=== PATIENT | male | born 1950 | race Caucasian/White ===

== ENCOUNTER 2020-07-28 19:34 | Inpatient (IN) | payer MEDICARE, OTHER ==
[~2020-07-28] VITALS: Ht 175.3 cm; Wt 101.7 kg
[2020-07-28] MEDS ORDERED: IOHEXOL 350 MG/ML 100 ML VIAL. ONE (19:43)
[2020-07-28] MEDS ORDERED: IV NORMAL SALINE 1,000ML 1,000 ML IV ONE (19:45)
--- NOTE | 2020-07-28 19:59 | RAD ---
Exam: CT head INDICATION: Slurred speech TECHNIQUE: Sequential axial images through the head were obtained without the administration of IV contrast. Comparisons: None FINDINGS: No focal parenchymal lesion or hemorrhage is identified. There is no midline shift or sulcal effacement. Findings likely related to chronic infarct at the right frontal lobe. There is mild patchy hypodensity in the periventricular white matter. No acute vascular territory infarction is identified. Davidson-white distinction is preserved. The ventricular system is within normal limits without compression hydrocephalus. The basal cisterns are well maintained. The visualized portions of the paranasal sinuses and mastoid air cells are well-pneumatized. No acute fractures. IMPRESSION: Mild small vessel ischemic change, technically age indeterminate without prior imaging. Additionally there is a chronic appearing infarct at the right frontal lobe, subacute component is difficult to exclude. MRI would better evaluate for acute ischemia. No hemorrhage. Exposure: One or more of the following in the visualized dose reduction techniques were utilized for this examination: 1. Automated exposure control 2. Adjustment of the MA and/or KV according to patient size Use of iterative of reconstructive technique FOR INTERNAL CODING PURPOSES Critical result: Findings discussed with KARMA RALPH at 07/28/2020 7:48 PM. RESULT CODE: (C) Electronically signed by: You Jackson MD (07/28/2020 7:55 PM) [facility]
--- NOTE | 2020-07-28 20:03 | PHYS DOC ---
Past History Past Medical History: CAD, Hypertension, IA Additional Past Medical Histor: Chronic back pain with LLE numbness Additional Past Surgical Histo: Heart stents Smoking: Non-smoker Alcohol Use: None Drug Use: None General Adult EDM: Chief Complaint: ALTERED MENTAL STATUS HPI: HPI: 69-year-old male presents via EMS as code stroke. Patient had presented to a urgent care with report of sudden slurred speech and left arm numbness that started at 1830. Patient reports he was at the local [facility] ordering food when symptoms occurred. EMS was called to the urgent care for a possible stroke. EMS noted patient having facial droop, slurred speech, and report of numbness to left arm. Patient reports he has chronic numbness in his left leg. Denies history of prior stroke. Patient denies trauma. Reports he is currently taking Plavix due to history of CAD with cardiac stents. Reports history of HTN and chronic back issues. Review of Systems: Review of Systems: Constitutional: Denies fever or chills Eyes: Denies redness or eye pain HENT: Denies nasal congestion or sore throat Respiratory: Denies cough or shortness of breath Cardiovascular: Denies chest pain or palpitations GI: Denies abdominal pain, nausea, or vomiting : Denies dysuria or hematuria Musculoskeletal: Denies back pain or joint pain Integument: Denies rash or skin lesions Neurologic: Denies headache; reports slurred speech, left-sided facial droop and left arm and leg numbness Complete systems were reviewed and found to be within normal limits, except as documented in this note. Current Medications: Current Meds: Current Medications Medications (Trade) Dose Ordered Sig/Thomas Start Time Stop Time Status Last Admin Dose Admin Iohexol (Omnipaque 350 Mg/ml) 100 ml STK-MED ONCE 07/28/20 19:43 07/28/20 19:44 DC Sodium Chloride 1,000 ml @ 1,000 mls/hr 1X ONCE 07/28/20 19:45 07/28/20 20:44 UNV Allergies: Allergies: Allergies Coded Allergies Type Severity Reaction Last Updated Verified Penicillins Allergy Unknown 07/28/20 Yes Sulfa (Sulfonamide Antibiotics) Allergy Unknown 07/28/20 Yes sulfamethoxazole Allergy Unknown 07/28/20 Yes trimethoprim Allergy Unknown 07/28/20 Yes Physical Exam: PE: Constitutional: Well developed, well nourished, no acute distress, non-toxic appearance HENT: Normocephalic, atraumatic, left-sided facial droop noted Eyes: PERRL, EOMI, conjunctiva normal, no discharge Neck: Normal range of motion, no tenderness, supple Lungs & Thorax: No respiratory distress, equal chest rise and fall CV: Heart rate normal, distal pulses equal to BUE and BLE Abdomen: Soft, no tenderness Skin: Warm, dry, no erythema, no rash Extremities: No tenderness, ROM intact, no edema Neurologic: Alert and oriented X 3, left facial droop noted, speech normal, left hand numbness and left leg numbness reported in comparison to right sided extremities, left leg drift without touching noted Psychologic: Affect normal, judgment normal EKG: EKG: @2013 NSR at 79bpm, NO ST elevation, QRS 92ms, QT/QTc 366/421ms, Q wave in III Radiology/Procedures: Radiology/Procedures: PROCEDURE: CT CODE STROKE HEAD WO Exam: CT head INDICATION: Slurred speech TECHNIQUE: Sequential axial images through the head were obtained without the administration of IV contrast. Comparisons: None FINDINGS: No focal parenchymal lesion or hemorrhage is identified. There is no midline shift or sulcal effacement. Findings likely related to chronic infarct at the right frontal lobe. There is mild patchy hypodensity in the periventricular white matter. No acute vascular territory infarction is identified. Davidson-white distinction is preserved. The ventricular system is within normal limits without compression hydrocephalus. The basal cisterns are well maintained. The visualized portions of the paranasal sinuses and mastoid air cells are well-pneumatized. No acute fractures. IMPRESSION: Mild small vessel ischemic change, technically age indeterminate without prior imaging. Additionally there is a chronic appearing infarct at the right frontal lobe, subacute component is difficult to exclude. MRI would better evaluate for acute ischemia. No hemorrhage. Exposure: One or more of the following in the visualized dose reduction techniques were utilized for this examination: 1. Automated exposure control 2. Adjustment of the MA and/or KV according to patient size Use of iterative of reconstructive technique FOR INTERNAL CODING PURPOSES Critical result: Findings discussed with JIMMY RALPH at 07/28/2020 7:48 PM. RESULT CODE: (C) Electronically signed by: You Jackson MD (07/28/2020 7:55 PM) [facility] PROCEDURE: CT ANGIOGRAPHY HEAD AND NECK Exam: CTA head and neck INDICATION: Left-sided weakness TECHNIQUE: Sequential axial images through the head and neck obtained following the administration of 75 mL of Omni 350 IV contrast. Sagittal and coronal reformatted images were reconstructed from the axial data and reviewed. 3-D reformatted images were reconstructed from the axial data and reviewed. Comparisons: CT head without contrast same day FINDINGS: CTA NECK: Visualized portions thoracic aorta are unremarkable. Standard three-vessel aortic arch anatomy. Right common carotid artery is patent without evidence of stenosis, occlusion or aneurysm. There is plaque at the origin of the right internal carotid artery approximately 70% stenosis. Left common carotid artery is patent without evidence of stenosis, occlusion or aneurysm. Mild plaque at the origin of the left internal carotid artery without significant stenosis. Right vertebral artery is patent to the basilar confluence without evidence of stenosis, occlusion or aneurysm. Left vertebral artery is patent to basilar confluence without evidence of stenosis, occlusion or aneurysm. Subtle patchy areas of ground glass opacity at the right upper lobe heterogenous appearance of the thyroid gland. CTA HEAD: Minimal calcified plaque at the cavernous segment of the right internal carotid artery without cement stenosis. Right MCA is patent. Right LUIGI is patent. Minimal calcified plaque at the cavernous segment of the left internal carotid artery velocity stenosis. Left MCA is patent. Left LUIGI is patent. Basilar artery is patent without evidence of stenosis, occlusion or aneurysm. honey blender are patent bilaterally. IMPRESSION: 1. No large vessel occlusion. 2. Severe stenosis at the origin of the right internal carotid artery, approximately 70% 3. Mild plaque at the origin of the left internal carotid artery as well as the cavernous segments of the internal carotid arteries bilaterally without significant stenosis. 4. Subtle patchy ground best opacity at the right upper lobe, may be infectious or inflammatory in etiology. 5. Heterogenous appearance of the thyroid gland. Further evaluation with nonemergent/outpatient thyroid ultrasound is recommended. Exposure: One or more of the following in the visualized dose reduction techniques were utilized for this examination: 1. Automated exposure control 2. Adjustment of the MA and/or KV according to patient size 3. Use of iterative of reconstructive technique FOR INTERNAL CODING PURPOSES Critical result: Findings discussed with JIMMY RALPH at 07/28/2020 8:27 PM. RESULT CODE: (C) Electronically signed by: You Jackson MD (07/28/2020 8:37 PM) [facility] PROC[facility]: PORTABLE CHEST 1V Single view chest dated 07/28/2020: No comparison available. Clinical Indication: Altered mental status.. Findings: Single upright portable exam of the chest was performed. Heart size and mediastinal contours are within normal limits given technique. The lungs are clear without evidence of focal consolidation. Vascular interstitium is within normal limits. Impression:: No acute radiographic abnormality.. Electronically signed by: Jimmy El MD (07/28/2020 9:04 PM) [facility] Course & Med Decision Making: Course & Med Decision Making Pertinent Labs and Imaging studies reviewed. (See chart for details) Patient presents as CODE STROKE via EMS with slurred speech, left facial droop, and left leg numbness after patient presented to urgent care. Last known well at 1830. Patient sent directly to CT. CT head without hemorrhage but noted chronic vs subacute signs of ischemia to right frontal lobe. NIHSS 3. Patient reports speech mildly improved but still numbness to left hand. Reports left leg numbness is baseline due to chronic back "issues". ASA given after patient passed RN bedside swallow evaluation. Patient within window of time for TPA. Concern given possible subacute area on CT, low NIHSS, and some mild improvement of symptoms. CTA head/neck without large vessel occlusion. Some carotid stenosis noted and incidental opacity to right upper lung. CXR without acute process. Discussed case with Dr. Griffin (neurology) at [facility] regarding case. Recommends discussion with Neurology regarding. Discussed case with Dr. Maria Eugenia Lance ( neurology) regarding. In agreement with risk of hemorrhage given CT findings and risk vs benefit with low NIHSS and some improvement of symptoms. Discussed risk vs benefit with patient. Patient with shared decision to hold TPA at this time. Patient requiring admission for further evaluation and treatment. Discussed with Dr. Trotter (hospitalist) who is in agreement with admission. Originally discussed transfer to [facility] for admission due to possible need for MRI during admission. [place] reports no telemetry beds available at this time, with earliest availability being next morning. Discussed with Dr. Trotter regarding who is in agreement with admission to [place] with neurology consultation to Dr. Tracy (neurology). Patient can be transferred to [place] for MRI as inpatient at [place] if needed or could possibly have MRI obtained as outpatient. Discussed this also with Dr. Griffin, who also is in agreement with plan. Discussed findings and plan with patient, who acknowledges understanding and agreement. Caty Disclaimer: Dragon Disclaimer: This electronic medical record was generated, in whole or in part, using a voice recognition dictation system. Departure Departure: Impression: Primary Impression: CVA (cerebral vascular accident) Qualified Codes: I63.9 - Cerebral infarction, unspecified Disposition: ADMITTED INPATIENT Admitting Physician: Kylie Trotter Condition: GUARDED NIHSS - ED NIH Stroke Scale: NIH Stroke Scale Response (Comments) Value Level of Consciousness: 0 Alert/Responsive 0 LOC Questions: 0 Answers both correctly 0 LOC Commands: 0 Performs both tasks 0 Best Gaze: 0 Normal 0 Visual: 0 No visual loss 0 Facial Palsy: 1 Minor paralysis 1 Motor - Left Arm 0 No drift 0 Motor - Right Arm 0 No drift 0 Motor - Left Leg 1 Drift but can hold 1 Motor: Right Leg 0 No drift 0 Limb Ataxia: 0 Absent 0 Sensory: 1 Mid to moderate loss 1 Best Language: 0 Normal 0 Dysathria: 0 Normal 0 Extinction and Inattention: 0 Normal 0 Total 3 Critical Care Time Critical care time was 30 minutes which includes time at bedside, spent in discussion of patient's care with specialists and/or family members, with interpretation of laboratory and/or radiological studies and is exclusive of procedures. JIMMY RALPH DO Jul 28, 2020 20:03
[2020-07-28] MEDS ORDERED: ASPIRIN 325 MG TABLET PO ONE (20:15)
--- NOTE | 2020-07-28 20:39 | RAD ---
Exam: CTA head and neck INDICATION: Left-sided weakness TECHNIQUE: Sequential axial images through the head and neck obtained following the administration of 75 mL of Omni 350 IV contrast. Sagittal and coronal reformatted images were reconstructed from the axial data and reviewed. 3-D reformatted images were reconstructed from the axial data and reviewed. Comparisons: CT head without contrast same day FINDINGS: CTA NECK: Visualized portions thoracic aorta are unremarkable. Standard three-vessel aortic arch anatomy. Right common carotid artery is patent without evidence of stenosis, occlusion or aneurysm. There is plaque at the origin of the right internal carotid artery approximately 70% stenosis. Left common carotid artery is patent without evidence of stenosis, occlusion or aneurysm. Mild plaque at the origin of the left internal carotid artery without significant stenosis. Right vertebral artery is patent to the basilar confluence without evidence of stenosis, occlusion or aneurysm. Left vertebral artery is patent to basilar confluence without evidence of stenosis, occlusion or aneurysm. Subtle patchy areas of ground glass opacity at the right upper lobe heterogenous appearance of the thyroid gland. CTA HEAD: Minimal calcified plaque at the cavernous segment of the right internal carotid artery without cement stenosis. Right MCA is patent. Right LUIGI is patent. Minimal calcified plaque at the cavernous segment of the left internal carotid artery velocity stenosis. Left MCA is patent. Left LUIGI is patent. Basilar artery is patent without evidence of stenosis, occlusion or aneurysm. cattle dealer are patent bilaterally. IMPRESSION: 1. No large vessel occlusion. 2. Severe stenosis at the origin of the right internal carotid artery, approximately 70% 3. Mild plaque at the origin of the left internal carotid artery as well as the cavernous segments of the internal carotid arteries bilaterally without significant stenosis. 4. Subtle patchy ground best opacity at the right upper lobe, may be infectious or inflammatory in etiology. 5. Heterogenous appearance of the thyroid gland. Further evaluation with nonemergent/outpatient thyroid ultrasound is recommended. Exposure: One or more of the following in the visualized dose reduction techniques were utilized for this examination: 1. Automated exposure control 2. Adjustment of the MA and/or KV according to patient size 3. Use of iterative of reconstructive technique FOR INTERNAL CODING PURPOSES Critical result: Findings discussed with KARMA RALPH at 07/28/2020 8:27 PM. RESULT CODE: (C) Electronically signed by: You Jackson MD (07/28/2020 8:37 PM) [facility]
--- NOTE | 2020-07-28 21:01 | EKG ---
[address] [address] Test Date: 2020-07-28 Test Time: 20:13:14 Pat Name: JARED JOYCE Department: Room: Gender: M Facility Maintenance Mechanic: : [id number] Requested By: KARMA RALPH Order Number: [id number] Reading MD: Measurements Intervals [place] Rate: 79 P: 39 VT: 170 QRS: -65 QRSD: 92 T: 25 QT: 366 QTc: 421 Interpretive Statements SINUS RHYTHM ABNORMAL LEFT AXIS DEVIATION QRS(T) CONTOUR ABNORMALITY CONSIDER ANTEROLATERAL INFARCT CONSISTENT WITH INFERIOR INFARCT PROBABLY OLD ABNORMAL ECG RI6.02 No previous ECG available for comparison
--- NOTE | 2020-07-28 21:06 | RAD ---
Single view chest dated 07/28/2020: No comparison available. Clinical Indication: Altered mental status.. Findings: Single upright portable exam of the chest was performed. Heart size and mediastinal contours are within normal limits given technique. The lungs are clear without evidence of focal consolidation. Vascular interstitium is within normal limits. Impression:: No acute radiographic abnormality.. Electronically signed by: Jimmy El MD (07/28/2020 9:04 PM) [place]
[2020-07-28] MEDS ORDERED: ONDANSETRON PF 4 MG/2 ML VIAL. IVP PRN (22:45)
--- NOTE | 2020-07-29 00:40 | NUR ---
The patient, JARED JOYCE, 69 y/o, M admitted by PRABHAKAR CALVO MD, was given written information regarding hospital policies, unit procedures and contact persons. Valuables were checked and documented. Pt is alert and oriented with stable vitals. Pt does have left side facial droop with slight slurring of speech. Pt is up as tolerated in room with equal strength bilaterally in all extremities. Pt had no complaints at the time. Pt is currently in bed watching TV. Will continue to monitor.
[2020-07-29 00:55] VITALS: BP 145/83
[2020-07-29] MEDS ORDERED: CRESTOR40 MG PO (01:42)
[2020-07-29] MEDS ORDERED: HYDR-2145 PO (01:42)
[2020-07-29] MEDS ORDERED: LOSA50TA86 PO (01:42)
[2020-07-29] MEDS ORDERED: EZET10TA20 PO (01:42)
[2020-07-29] MEDS ORDERED: TRAM50TA PO (01:42)
[2020-07-29] MEDS ORDERED: PANT40TA6 PO (01:42)
[2020-07-29] MEDS ORDERED: VORT20TA PO (01:43)
[2020-07-29] MEDS ORDERED: CYCL1DRO OP (01:48)
[2020-07-29] MEDS ORDERED: TRAZ-125 PO (01:48)
[2020-07-29] MEDS ORDERED: CLON0.5T4 PO (01:48)
[2020-07-29] MEDS ORDERED: ASPI-630 PO (01:48)
[2020-07-29 02:29] LABS: BASO # 0.1 x10^3/uL (0.0-0.2); BASO % 1 % (0-3); EOS # 0.2 x10^3/uL (0.0-0.7); EOS % 2 % (0-3); HEMATOCRIT 50.4 % (39.0-53.0); HEMOGLOBIN 16.4 g/dL (13.0-17.5); LYMPH # 0.9 x10^3/uL (1.0-4.8); LYMPH % 10 % (24-48); MEAN CORPUSCULAR HEMOGLOBIN 30 pg (25-35); MEAN CORPUSCULAR HGB CONC 33 g/dL (31-37); MEAN CORPUSCULAR VOLUME 93 fL (79-100); MONO # 0.7 x10^3/uL (0.0-1.1); MONO % 8 % (0-9); NEUT # 7.1 x10^3uL (1.8-7.7); NEUT % 79 % (31-73); PLATELET COUNT 190 x10^3/uL (140-400); RED BLOOD COUNT 5.43 x10^6/uL (4.30-5.70); RED CELL DISTRIBUTION WIDTH 13.5 % (11.5-14.5)
[2020-07-29 04:25] LABS: CALCIUM 9.1 mg/dL (8.5-10.1); CREATININE 1.5 mg/dL (0.7-1.3); GFR 46.1; POTASSIUM 4.5 mmol/L (3.5-5.1)
[2020-07-29 04:42] LABS: ALBUMIN 3.5 g/dL (3.4-5.0); ALBUMIN/GLOBULIN RATIO 1.2 (1.0-1.7); TOTAL BILIRUBIN 0.9 mg/dL (0.2-1.0); TOTAL PROTEIN 6.5 g/dL (6.4-8.2)
[2020-07-29 06:22] VITALS: BP 137/77
--- NOTE | 2020-07-29 08:35 | NUR ---
NURSING NOTE CONSULT CONSULT PAGED TO DR WILSON. GRANT GALAN.
[2020-07-29] MEDS ORDERED: ASPIRIN CHEWABLE 81 MG TABLET. PO SCH (10:00)
[2020-07-29] MEDS ORDERED: CLOP75TA57 PO (10:03)
[2020-07-29 10:08] VITALS: BP 164/75
[2020-07-29] MEDS: CLOPIDOGREL BISULFATE 75 MG TABLET PO SCH (11:10)
[2020-07-29] MEDS: traMADol 50 MG TABLET PO SCH (11:10)
[2020-07-29] MEDS: LOSARTAN 50 MG TABLET. PO SCH (11:10)
[2020-07-29] MEDS: EZETIMIBE 10 MG TABLET PO SCH (11:10)
[2020-07-29] MEDS: PANTOPRAZOLE 40 MG TABLET. PO SCH (11:29)
[2020-07-29 16:49] VITALS: BP 145/81
--- NOTE | 2020-07-29 17:02 | HP ---
ADMIT DATE: 07/28/2020 HISTORY OF PRESENT ILLNESS: The patient is a 69-year-old male patient, who came to the Emergency Room with altered mental status. He was brought by EMS with a code stroke. The patient had presented to an urgent care with report of sudden slurred speech and left arm numbness that started at around 1830. He reported that he was at the local [employer] ordering food when symptoms occurred. EMS was called to the urgent care for a possible stroke. EMS noted the patient having facial droop, slurred speech and reports numbness in the left arm. He reported that he has chronic numbness in his left leg. Denied any history of prior stroke. Denied any trauma or fall. He reports he is currently taking Plavix due to history of coronary artery disease and cardiac stents, has a history of hypertension, chronic back issues. He was evaluated in the Emergency Room, has had lab work that was generally unremarkable. His CT scan of the head showed mild small vessel ischemic changes, technically age indeterminate without prior imaging. Additionally, there is a chronic appearing infarct at the right frontal lobe, subacute component is difficult to exclude. MRI would better evaluate for acute ischemia, but no hemorrhage. His CT angio showed no large vessel occlusion. He has severe stenosis at the origin of the right internal carotid artery approximately 70%. He has mild plaque at the origin of the left internal carotid artery as well as cavernous segments of the internal carotid arteries bilaterally without significant stenosis. He has subtle patchy ground opacity at the right upper lobe, may be infectious, inflammatory in etiology. He has heterogenous appearance of the thyroid gland. Further evaluation with nonemergent outpatient thyroid ultrasound is recommended. The patient was admitted to [facility]. We did consult Dr. Tracy for evaluation and treatment. PAST MEDICAL HISTORY: Significant for hypertension and hyperlipidemia. He has had myocardial infarction x 4. He had a PCI with stent deployment x 4. He has chronic sinusitis, recurrent cellulitis, benign prostatic hypertrophy and chronic low back pain. PAST SURGICAL HISTORY: Significant for PCI with stent deployment x 4, appendectomy, tonsillectomy, Achilles tendon repair of the right foot and pilonidal cystectomy. ALLERGIES: Allergic to BACTRIM AND PENICILLIN. MEDICATIONS: He is currently on following medications: He is on Plavix 75 mg once a day, Zetia 10 mg once a day, Crestor 40 mg once a day, losartan potassium 50 mg daily, aspirin 325 mg once a day, tramadol 50 mg daily, clonazepam 0.5 mg b.i.d., trazodone 100 mg p.o. at bedtime. He is on Trintellix 20 mg daily, hydrochlorothiazide 25 mg daily and cyclosporine for Restasis 1 drop to both eyes twice a day, Protonix 40 mg daily. FAMILY HISTORY: He has one brother older and 2 brothers younger and 1 sister younger, one older brother and one younger sister. One younger brother has myocardial infarction. His father at the age of 60 because of myocardial infarction. Mother at age of 97. SOCIAL HISTORY: , has 4 daughters. He never smoked. Drinks alcohol occasionally. Does not use any drugs. He is retired from the [employer]. 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 REVIEW OF SYSTEMS: As per history of present illness that included slurring of speech and left arm numbness and difficulty talking that has largely improved by the time he arrived to the Emergency Room. The patient denies any blurring of vision, cataract, glaucoma or macular degeneration. Denied any earache, tinnitus or sensorineural deafness. Denied any nosebleeds, stuffy nose or postnasal drip. Denied any sore throat, sore tongue, and difficulty swallowing. Denied any nausea, vomiting, diarrhea or constipation. Denied any hematemesis, melena or hematochezia. Denied any dysuria, frequency or hematuria. Denied any chest pain, shortness of breath, orthopnea or paroxysmal nocturnal dyspnea. Denied any cough, phlegm or hemoptysis. Denied any chills, rigors or fever. PHYSICAL EXAMINATION: GENERAL: On arrival to the Emergency Room, the patient looked well and was clearly in no apparent respiratory distress. No pallor, jaundice, cyanosis or thyromegaly. No jugular venous distention. No limb edema. VITAL SIGNS: His heart rate was 82, blood pressure was 151/80, temperature was 98, respiratory rate was 16, and oxygen saturation was 96%. HEAD, EYES, EARS, NOSE AND THROAT: Normocephalic, atraumatic. NECK: Supple. HEART: Showed normal first and second heart sounds. No gallop or murmur. CHEST: Clear to auscultation. No crepitation or rhonchi. ABDOMEN: Distended, soft, nontender. No guarding or rigidity. No organomegaly. All hernial orifice intact. Bowel sounds normal. NEUROLOGIC: He was awake, alert, oriented to time, place and person. The speech is normal. His left hand numbness and left leg numbness reported in comparison to the right side. Left leg drift without touching noted. His affect and judgment were normal. His EKG showed that he was in normal sinus rhythm at a rate of 79 beats per minute with no ST segment elevation, QRS 92, and corrected interval of [address] scan of the head showed no focal parenchymal lesion or hemorrhage identified. There is no midline shift or sulcal effacement. Finding likely related to chronic infarct at the right frontal lobe. There is a mild patchy hypodensity in the periventricular white matter. No acute vascular territory infarction is identified. Davidson white distinction is preserved. Ventricular system is within normal limits without compression hydrocephalus. The basal cisterns are well maintained. The visualized portion of the paranasal sinuses and mastoid air cells are well pneumatized. No acute fracture. The CT angio of the head and neck basically showed that there is no large vessel occlusion or severe stenosis at the origin of the right internal carotid artery of approximately 70%. He has mild plaque at the origin of the left internal carotid artery as well at the cavernous segments of the internal carotid arteries bilaterally without significant stenosis. He has subtle patchy ground opacity at the right upper lobe, may be infectious, inflammatory in etiology. He has also heterogenous appearance of the thyroid gland. Further evaluation with nonemergent outpatient thyroid ultrasound is recommended. His lab work showed that his white cell count was 9000, hemoglobin 16, hematocrit 50, MCV 93, and platelet count of 190,000 with a manual differential shows 79% polymorphs, 10% lymphocytes and 8% monocytes. His chemistry showed a serum sodium 140, potassium 4.5, chloride 105, bicarbonate 24, anion gap of 11, BUN 26, creatinine 1.5, estimated GFR was 46 mL per minute, his glucose was 122, calcium was 9.1. Total bilirubin, AST, ALT, alkaline phosphatase were normal. Ammonia was 24. CK was 95. Total protein 6.5, albumin was 1.2. His lipid profile showed serum triglycerides of 148, total cholesterol was 108, LDL was 40, VLDL was 29, HDL cholesterol was 39, the ratio was 2. His prothrombin time was 10.4, INR 1, aPTT was 25. ASSESSMENT AND PLAN: The patient was admitted with questionable transient ischemic attack. We did consult Dr. Tracy, who recommended increasing his aspirin to 325 mg. Continue with Plavix and his atorvastatin as well as Zetia. We will consult the physical and occupational therapist, I have spoked and decide on further management accordingly. PRABHAKAR CALVO MD DR: ANNEL/jesus JOB#: [id number] / [id number]
[2020-07-29 19:25] VITALS: BP 123/54
--- NOTE | 2020-07-29 19:39 | CONS ---
DATE OF CONSULTATION: NEUROLOGIC CONSULTATION REFERRING PHYSICIAN: Dr. Trotter. REASON FOR CONSULTATION: Rule out stroke versus TIA. HISTORY OF PRESENT ILLNESS: This is a 69-year-old right-handed male who was admitted through Emergency Room on account of new onset of slurred speech, numbness of the left arm, started yesterday at 1830. The patient stated he was at a local ____, ordering food when the symptoms began. EMS was activated and transferred the patient for further evaluation. His blood pressure on arrival was 151/80. The patient stated his slurred speech lasted approximately half hour and currently he continues to have some weakness of the left lower side of his face including the lips. He was having mild headaches, but not recently. He denies visual disturbances, weakness of the upper or lower extremities, or vertigo. He denies dysphagia. Initial nonenhanced head CT scan revealed mild small vessel ischemic changes and old infarct in the right frontal lobe, possible subacute. Head and neck CT angio revealed right internal carotid artery stenosis approximately 70% at the origin. The left common carotid artery is patent. There was no evidence of large intracranial vessel stenosis. PAST MEDICAL HISTORY: Significant for coronary artery disease, myocardial infarction x 4, hyperlipidemia, hypertension, arthritis, prediabetes mellitus, bipolar disorder, skin cancer, chronic radicular lower back pain and he related that to degenerative disk disease of the lumbar spine. PAST SURGICAL HISTORY: Status post coronary artery stent placements x 4 and skin melanoma and squamous cell carcinoma as well. FAMILY HISTORY: Mother had pneumonia, brother had cholecystectomy, and father had heart disease. SOCIAL HISTORY: The patient denies smoking, alcohol drinking, or illicit drug use. CURRENT HOME MEDICATIONS: Aspirin chewable 81 mg daily, Plavix 75 mg p.o. daily, Crestor 40 mg daily, pantoprazole 40 mg daily, hydrochlorothiazide 25 mg daily, Zetia 10 mg p.o. daily, clonazepam 0.5 mg b.i.d., trazodone 100 mg at bedtime, Trental 1 tablet daily. ALLERGIES: PENICILLIN, SULFA DRUGS. REVIEW OF SYSTEMS: A 10-point review of systems was performed as mentioned above in history of present illness, otherwise unremarkable. The patient continues to have mild weakness of the left lower face. PHYSICAL EXAMINATION: GENERAL: Obese male, not in acute distress. He weighs 103.4 kilos. VITAL SIGNS: Blood pressure 133/88, respiratory rate 16, pulse is 72, temperature is 98, oxygen saturation 95% on room air. HEENT: Normocephalic, atraumatic, otherwise unremarkable. NECK: Supple. Negative for carotid bruit, lymphadenopathy, or thyromegaly. LUNGS: Clear to A and P. CARDIOVASCULAR: Regular rate and rhythm. Normal S1, S2. There is no S3, S4, or murmur. ABDOMEN: Soft. Bowel sounds positive. EXTREMITIES: Negative for cyanosis, clubbing, or edema. NEUROLOGICAL EXAM: MENTAL STATUS: The patient is alert and oriented x 3. Speech is fluent. There is no language dysfunction. Memory, judgment, and abstracting thinking are normal. The patient denies hallucination or delusion. CRANIAL NERVES: Visual olivera are full. The pupils are reactive to light and accommodation. The extraocular movements are intact. There is no nystagmus. There are no facial motor or sensory deficits. Hearing is intact bilaterally. The palate is elevated symmetrically. Sternocleidomastoid muscles are powerful bilaterally. The patient shrugs his shoulders symmetrically, protrudes his tongue in the midline without fasciculation or atrophy. MOTOR: No focal muscle bulk was seen. The tone is normal. The strength is 5/5 throughout. SENSORY EXAMINATION: Revealed normal pinprick, light touch, vibratory, and position senses. Deep tendon reflexes were asymmetric and hypoactive in the lower extremities with absent Achilles responses. GAIT AND COORDINATION: Normal. LABORATORY DATA: CBC revealed white blood cells of 9000, hemoglobin 16.4, hematocrit 50.4, platelet count 190,000. Chemistry revealed sodium of 140, potassium 4.5, chloride 105, CO2 of 24, BUN 26, creatinine 1.5, glucose 222, calcium 9.1. Troponin level is 0.037. Liver enzymes are normal. Coagulation is normal. IMPRESSION: 1. Very mild left lower facial asymmetry. It is not clear whether it is subacute or old right frontal lobe infarct with no significant other neurological deficits. Multiple risk factors for transient ischemic attack or stroke include right carotid artery stenosis at the origin, coronary artery disease, hypertension, hyperlipidemia, prediabetes mellitus, age, and obesity. 2. Chronic radicular lower back pain secondary to degenerative disk disease. 3. Multiple psychiatric problems include depressions and anxiety. RECOMMENDATIONS: 1. We will start aspirin 325 mg and Plavix 75 mg p.o. daily. 2. We will check lipid profiles. 3. Continue with current management and home medications. 4. May consider right carotid endarterectomy to prevent TIA or stroke. M Hattie WILSON MD DR: ROMA/jesus JOB#: [id number] / [id number]
[2020-07-29] MEDS ORDERED: ATORVASTATIN CALCIUM 20 MG TABLET PO SCH (21:00)
[2020-07-29] MEDS ORDERED: traZODone 100 MG TABLET. PO SCH (21:00)
[2020-07-29] MEDS: clonazePAM 0.5 MG TABLET PO SCH (21:44)
[2020-07-29] MEDS: cycloSPORINE 0.05% OPTH 1 DROP DROPERETTE OU SCH (21:45)
[2020-07-29 22:47] VITALS: BP 110/64
--- NOTE | 2020-07-29 23:08 | PN ---
DATE: 07/29/2020 SUBJECTIVE: The patient is a 69-year-old male patient who was admitted yesterday with altered mental status. He developed slurring of speech and difficulty talking and left arm numbness that started while at the local [employer] ordering food when symptoms occurred. He was taken to an urgent care for possible stroke and from there he was brought to the Emergency Room of [facility] where he was found to have left-sided facial droop, slurred speech and reported numbness in the left arm. He has had imaging studies and lab work and was admitted and we did consult Dr. Tracy for evaluation and treatment. When I saw him today, he was resting slightly propped up in bed, in no apparent respiratory distress. On questioning him, he continued to have mild difficulty with speech, although from my point of view, he was able to express himself without any difficulty. He also continued to complain of some tingling in his left hand, but otherwise he was able to eat and drink without any difficulty. He was able to ambulate without any difficulty. OBJECTIVE: GENERAL: When I examined him this afternoon, he looked well and was clearly in no apparent respiratory distress. There is definitely no pallor, jaundice, cyanosis or thyromegaly. No jugular venous distention or limb edema. VITAL SIGNS: His heart rate was 52, blood pressure was 164/75, temperature was 98.2, respiratory rate was 20, and oxygen saturation was 96%. HEENT: Showed normocephalic, atraumatic. NECK: Supple. HEART: Showed normal first and second heart sounds. No gallop or murmur. CHEST: Shows central trachea, equal bilateral expansion, air entry, vesicular sounds. No crepitation or rhonchi. ABDOMEN: Distended, soft, nontender. NEUROLOGICAL: He has mild left sided facial droop, otherwise all cranial nerves are intact. He moves extremities without difficulty. His intake and output are incompletely recorded. LABORATORY DATA: He has no lab works done this morning. I have had a lengthy discussion with the management, as his plan was to go back to [place] at the end of the week next week, but I gave him the option to transfer him to [facility] to consult the vascular surgeon and the pododermatologist there or back to [place] to be seen by his pododermatologist and arrange for the further evaluation. In particular, he has severe 70% right internal carotid stenosis and he opted for the latter. We will continue observing him for one more day here and tomorrow morning. The plan is for him to fly back to [place]. PRABHAKAR CALVO MD DR: ANNEL/jesus JOB#: [id number] / [id number]
[2020-07-30 05:15] VITALS: BP 128/75
[2020-07-30 06:58] LABS: HEMATOCRIT 48.2 % (39.0-53.0); HEMOGLOBIN 15.9 g/dL (13.0-17.5); RED BLOOD COUNT 5.24 x10^6/uL (4.30-5.70); RED CELL DISTRIBUTION WIDTH 13.4 % (11.5-14.5); WHITE BLOOD COUNT 5.9 x10^3/uL (4.0-11.0)
[2020-07-30 07:07] LABS: CALCIUM 9.2 mg/dL (8.5-10.1); CREATININE 1.1 mg/dL (0.7-1.3); POTASSIUM 4.1 mmol/L (3.5-5.1)
[2020-07-30] MEDS ORDERED: PANTOPRAZOLE 40 MG TABLET. PO SCH (07:30)
[2020-07-30] MEDS ORDERED: ASPIRIN 325 MG TABLET PO SCH (08:00)
[2020-07-30] MEDS ORDERED: hydroCHLOROthiazide 25 MG TABLET PO SCH (09:00)
[2020-07-30] MEDS: cycloSPORINE 0.05% OPTH 1 DROP DROPERETTE OU SCH (09:00)
[2020-07-30] MEDS ORDERED: NON FORMULARY ITEM (Vortioxetine Hydrobromide (Trintellix) 1 TAB) PO SCH (09:00)
[2020-07-30] MEDS: CLOPIDOGREL BISULFATE 75 MG TABLET PO SCH (10:28)
[2020-07-30] MEDS: EZETIMIBE 10 MG TABLET PO SCH (10:28)
[2020-07-30] MEDS: traMADol 50 MG TABLET PO SCH (10:29)
[2020-07-30] MEDS: LOSARTAN 50 MG TABLET. PO SCH (10:29)
[2020-07-30] MEDS: clonazePAM 0.5 MG TABLET PO SCH (10:29)
[2020-07-30] MEDS: PANTOPRAZOLE 40 MG TABLET. PO SCH (10:29)
[2020-07-30 10:45] VITALS: BP 133/74
[2020-07-30] MEDS ORDERED: ASPI325T8 PO (13:05)
--- NOTE | 2020-07-30 13:22 | NUR ---
NURSING NOTE DISCHARGE PT DISCHARGED HOME VIA AMBULATION PICKED UP BY [employer] [facility] [employer]. PT GIVEN WRITTEN AND VERBAL DISCHARGE INSTRUCTIONS. NO SCRIPTS GIVEN, PT TO INCREASE DAILY ASPIRIN TO 325MG DAILY FROM 81MG. PT GIVEN EDUCATION ABOUT STROKE AND STROKE PREVENTION. PT ENCOURAGED TO FOLLOW UP WITH PCP IN 7-10 DAYS OR SOONER IF NEEDED FOR EVALUATION AND NEUROLOGY REFERRAL. NO COMPLICATIONS. GRANT GALAN.
--- NOTE | 2020-07-30 13:33 | DS ---
DATE OF DISCHARGE: 07/29/2020 HOSPITAL COURSE: The patient is a 69-year-old male patient who was admitted to the Emergency Room for new onset of slurred speech, numbness in left arm started on the day of admission at 1830. He stated he was at a local [employer] and he was brought to the Emergency Room with a code stroke and his blood pressure on arrival was 151/80. The patient stated his slurred speech lasted approximately half an hour and currently continues to have some weakness in the left lower side of his face including the lips. He was having mild headaches, but not recently. He denies any visual disturbances, weakness in the upper or lower extremities or vertigo. He denied any dysphagia. Initial nonenhanced CT scan revealed mild small vessel ischemic changes and old infarct in the right frontal lobe, possibly subacute. He had head and neck CT angio revealing right internal carotid artery stenosis approximately 70% at the origin. The left common carotid artery is patent. There was no evidence of large intracranial basilar stenosis. He was seen by Dr. Tracy who did not think that doing an MRI will make any difference to his management and he increased his aspirin to 325 mg. He did very well today with physical therapy. He is eating and drinking without any difficulty. 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 PHYSICAL EXAMINATION: GENERAL: When I saw him today, he looked well and was clearly in no apparent respiratory distress. No pallor, jaundice, cyanosis or thyromegaly. No jugular venous distention or limb edema. VITAL SIGNS: Her heart rate was 72, blood pressure was 133/74, temperature was 97.6, and oxygen saturation was 96% on room air. HEAD, EYES, EARS, NOSE AND THROAT: Showed normocephalic, atraumatic. NECK: Supple. HEART: Showed normal first and second heart sounds. No gallop, rub or murmur. CHEST: Clear to auscultation. No crepitation or rhonchi. ABDOMEN: Distended, soft, nontender. NEUROLOGIC: He is awake, alert, responding appropriately. All cranial nerves intact except he has mild left-sided lower facial nerve weakness. EXTREMITIES: He moves extremities without difficulty, ambulates without difficulty. LABORATORY DATA: This morning showed a white cell count 5900, hemoglobin 15.9, hematocrit 48, MCV 92, and platelet count of 169,000. His serum sodium 141, potassium 4.1, chloride 106, bicarbonate 27, anion gap of 8, BUN 18, creatinine 1.1, estimated GFR was 66 mL per minute, his glucose 117, calcium was 9.2. His prothrombin time, INR and aPTT were normal. DISCHARGE MEDICATIONS: He was discharged home to continue on aspirin 325 mg once a day, clonazepam 0.5 mg twice a day, Plavix 75 mg once a day, Restasis 1 drop to both eyes twice a day, Zetia 10 mg once a day, hydrochlorothiazide 25 mg daily, losartan potassium 50 mg once a day, Protonix 40 mg once a day, Crestor 40 mg at bedtime, tramadol 50 mg p.o. daily, trazodone 100 mg at bedtime, and Trintellix 20 mg once a day. FINAL DISCHARGE DIAGNOSES: 1. Mild left lower facial asymmetry, it is not clear whether this is subacute or old right frontal lobe infarct with no significant other neurological deficit. 2. Chronic radicular lower back pain secondary to degenerative disk disease. Other medical problems include coronary artery disease, status post stent deployment x 4, skin melanoma, squamous cell carcinoma as well. He has also hypertension, hyperlipidemia, chronic radicular lower back pain related to degenerative disk disease. PRABHAKAR CALVO MD DR: ANNEL/jesus JOB#: [id number] / [id number]
--- NOTE | 2020-07-30 20:31 | PN ---
DATE: 07/30/2020 SUBJECTIVE: The patient denies any new medical or neurological complaints. He denies headaches or visual disturbances. He eats and drinks well. He described probably mild residual of weakness of the left lower face muscle. OBJECTIVE: GENERAL: Obese male, not in acute distress. VITAL SIGNS: Blood pressure 133/74, respiratory rate 18, pulse is 72, oxygen saturation is 96%, and temperature 97.6. HEENT: Normocephalic, atraumatic, otherwise unremarkable. NECK: Supple. Negative for carotid bruit, lymphadenopathy or thyromegaly. LUNGS: Clear to A and P. CARDIOVASCULAR: Regular rate and rhythm, normal S1 and S2. There is no S3, S4 or murmurs. ABDOMEN: Soft. Bowel sounds positive. EXTREMITIES: Negative for cyanosis, clubbing or edema. NEUROLOGICAL EXAMINATION: Normal mental status and intact cranial nerves. There are no focal motor or sensory deficits. Deep tendon reflexes were asymmetric and active with absent Achilles responses. Gait and coordination were normal. LABORATORY DATA: CBC revealed white blood cells of 5.9 thousand, hemoglobin 15.9, hematocrit 48.2, and platelet count 169,000. Chemistry revealed sodium of 141, potassium 4.1, chloride 106, CO2 of 27, BUN 16, creatinine 1.1, glucose 117, calcium 9.2. Lipid profile revealed low HDL, but otherwise unremarkable. Mild left facial asymmetry, probably due to subacute or old infarct. However, his head CT scan revealed an old right frontal lobe infarct and CT angio of the neck revealed evidence of carotid artery stenosis at 70% at its origin. However, CT angio of the carotid artery revealed 70% stenosis at the origin of the left internal carotid artery and CT angio of the head revealed no evidence of blood vessel and pathology or aneurysm. The patient is neurologically stable. IMPRESSION: Chronic radicular lower back pain, probably secondary to degenerative disk disease, coronary artery disease, status post coronary stent x 4 placement, squamous cell carcinoma of the skin, as well as melanoma, hypertension, hyperlipidemia. RECOMMENDATIONS: As the patient is going to travel to [place] where he lives, he should be followed by a yard goods salesperson regarding his 70% narrowing of the origin of the right internal carotid artery. Otherwise, he will continue with current home medications initiated by Dr. Trotter. M F. HABIB, MD DR: ROMA/jesus JOB#: [id number] / [id number]
== END 2020-07-30 13:24 | disposition home or self-care (01) | DRG 67 ==
LOC: ER 19:34 → 1 SOUTH 22:30 → ER 07-29 00:29
PROVIDERS: ADMIT Internal Medicine; ATTEND Internal Medicine
DX: I65.21 Occlusion and stenosis of right carotid artery (principal); N17.0 Acute kidney failure with tubular necrosis; I25.10 Atherosclerotic heart disease of native coronary artery without angina pectoris; E78.5 Hyperlipidemia, unspecified; I10 Essential (primary) hypertension; M54.5 Low back pain; M51.36 Other intervertebral disc degeneration, lumbar region; Z95.5 Presence of coronary angioplasty implant and graft; Z88.0 Allergy status to penicillin; Z88.8 Allergy status to other drugs, medicaments and biological substances; Z90.49 Acquired absence of other specified parts of digestive tract; R29.810 Facial weakness; F31.9 Bipolar disorder, unspecified; F41.9 Anxiety disorder, unspecified; I25.2 Old myocardial infarction; N40.0 Benign prostatic hyperplasia without lower urinary tract symptoms; Z79.82 Long term (current) use of aspirin; Z79.899 Other long term (current) drug therapy; Z82.49 Family history of ischemic heart disease and other diseases of the circulatory system; Z86.73 Personal history of transient ischemic attack (TIA), and cerebral infarction without residual deficits; Z85.820 Personal history of malignant melanoma of skin; J32.9 Chronic sinusitis, unspecified; G89.29 Other chronic pain; R73.03 Prediabetes; M54.9 Dorsalgia, unspecified; M19.90 Unspecified osteoarthritis, unspecified site; R47.81 Slurred speech
CPT/HCPCS: 36415; 70450; 70496; 70498; 71045; 80048; 80053; 80061; 82140; 82553; 82947; 83605; 84484; 85025; 85027; 85610; 85730; 93005; 97110; 99285-25; J7030